=== PATIENT | female | born 1995 | race Caucasian/White ===

== ENCOUNTER 2021-01-07 13:19 | Emergency (ER) | payer BC ==
[~2021-01-07] VITALS: Ht 167.6 cm; Wt 77.1 kg
== END 2021-01-07 19:19 | disposition home or self-care (01) ==
LOC: ER 13:19
DX: R50.9 Fever, unspecified (principal); R05 Cough; R09.81 Nasal congestion; R51.9 Headache, unspecified; R53.81 Other malaise; Z20.822 Contact with and (suspected) exposure to COVID-19